=== PATIENT | male | born 1950 | race Caucasian/White ===

== ENCOUNTER 2016-10-21 15:43 | Emergency (ER) | payer MEDICARE, OTHER ==
--- NOTE | ~2016-10-21 | CT71 ---
[facility] A Service of [facility] RADIOLOGY TEXT RESULTS PATIENT: RAKESH SHAVER LOCATION: [place] : 46 UNIT #: [id number] AGE: [address]: Alicja Christiansen SEX: M ORDER DR: [id number] [facility] [address] [place], [place] [address] [id number] MR#: [id number] Acc #: [id number] NAME: RAKESH SHAVER. : 1950 SEX: M STUDY DATE/TIME: 10/21/2016 16:18 UNIT: [id number] ROOM: STUDY DESCRIPTION: CT Head Wo Contrast Attending Physician: Alicja Christiansen Pa-C Ordering Physician: [facility] Primary Care Physician: Enedelia Kaiser M.D. MEDICAL IMAGING REPORT This report is preliminary unless electronic signature is present EXAM Head CT without contrast HISTORY Headache with scalp laceration today. Hit on the head by a trash can lid. TECHNIQUE Axial images were obtained without contrast. This CT exam was performed with one or more of the following radiation dose reduction techniques: automatic exposure control, adjustment of mA and/or kV according to patient size, and iterative reconstruction. FINDINGS Ventricular size and configuration are normal. There is no evidence of acute infarct or hemorrhage. There are no extraaxial fluid collections. No mass lesion or mass effect is seen. There are no skull fractures. IMPRESSION Normal noncontrast head CT. Dictated by... Brandan Portillo M.D. THIS IS AN ELECTRONICALLY VERIFIED REPORT Brandan Portillo M.D. at 10/22/2016 7:30 AM RLF/pcl TD: 10/21/2016 17:22 JOB #: [id number] [facility] A Service [facility] RADIOLOGY TEXT RESULTS PATIENT: RAKESH SHAVER LOCATION: [facility] : 46 UNIT #: [id number] AGE: [address]: Alicja Christiansen SEX: M ORDER DR: MEDICAL IMAGING REPORT Page 1 of 1 COPY
[~2016-10-21 15:43] MED LIST: ALLEGRA PO; ALLERGY10 M1; ASPIRIN81 M1 PO; CARBIDOPA-LEVO1 TAB PO; CELEXA20 MG PO; CENTRUM SILVER1 EAC2 PO; CINNAMON3.7 ML; CINNAMON3.7 ML PO; FENOFIBRATE160 MG PO; FINASTERIDE5 MG PO; FISH OIL 1,0001 EAC2; FISH OIL 1,2001 EAC5 PO; FLEXI JOINT TAB1 TA1 PO; GLUCOSAMINE; GLUCOSAMINE-CH1 EA10 PO; LEVOTHYROXINE25 MCG PO; LEXAPRO PO; MULTI-DAY VITAM1 TAB PO; NIASPAN PO; TOVIAZ8 MG PO; TRILIPIX135 MG; TRILIPIX135 MG PO
== END 2016-10-21 17:00 | disposition home or self-care (01) ==
LOC: CFTX 15:43 → CED 15:43 → CFTX 16:58
DX: S01.01XA Laceration without foreign body of scalp, initial encounter (principal); E78.00 Pure hypercholesterolemia, unspecified; F17.200 Nicotine dependence, unspecified, uncomplicated; Z79.899 Other long term (current) drug therapy; G20 Parkinson's disease; Z23 Encounter for immunization; W20.8XXA Other cause of strike by thrown, projected or falling object, initial encounter; Y92.009 Unspecified place in unspecified non-institutional (private) residence as the place of occurrence of the external cause
CPT/HCPCS: 12004; 70450; 90471; 90715; 99283

== ENCOUNTER 2016-10-28 13:29 | Emergency (ER) | payer MEDICARE, OTHER ==
[~2016-10-28] VITALS: Ht 188 cm; Wt 90.7 kg
== END 2016-10-28 14:05 | disposition home or self-care (01) ==
LOC: CFTX 13:29 → CED 13:29 → CFTX 13:53
DX: S01.01XD Laceration without foreign body of scalp, subsequent encounter (principal); E78.00 Pure hypercholesterolemia, unspecified; G20 Parkinson's disease; F17.200 Nicotine dependence, unspecified, uncomplicated; Z88.8 Allergy status to other drugs, medicaments and biological substances
CPT/HCPCS: 99281